=== PATIENT | male | born 1960 | race Asian ===

== ENCOUNTER 2018-11-27 13:33 | Emergency (ER) | payer MEDICAID, OTHER ==
[~2018-11-27] VITALS: Ht 160 cm; Wt 72.6 kg
[2018-11-27 13:40] VITALS: BP 124/73
[2018-11-27] MEDS ORDERED: CYCLOBENZAPRINE 10 MG TABLET PO ONE (14:00)
[2018-11-27] MEDS ORDERED: IBUPROFEN 600 MG TABLET PO ONE ×2 (14:00→14:01)
[2018-11-27] MEDS ORDERED: CYCLOBENZAPRINE 10 MG TABLET ONE (14:01)
[2018-11-27] MEDS ORDERED: methylPREDNISolone SOD SUCC 125 MG/2ML VIAL IM ONE (14:30)
[2018-11-27] MEDS ORDERED: FAMOTIDINE (20 MG) 20 MG TABLET PO ONE (14:30)
== END 2018-11-27 14:09 | disposition home or self-care (01) ==
LOC: ER 13:39
DX: S29.012A Strain of muscle and tendon of back wall of thorax, initial encounter (principal); M54.40 Lumbago with sciatica, unspecified side; X58.XXXA Exposure to other specified factors, initial encounter; Y93.89 Activity, other specified; Y92.89 Other specified places as the place of occurrence of the external cause; Y99.8 Other external cause status